=== PATIENT | female | born 1965 | race Caucasian/White ===

== ENCOUNTER 2024-02-29 06:48 | Day surgery (SDC) | payer MEDICARE, OTHER ==
[2024-02-29] MEDS ORDERED: Depo-Medrol 40 MG/ML IM ONE (06:49)
[2024-02-29] MEDS ORDERED: BUPIVACAINE 0.5% VIAL IJ ONE (06:49)
[2024-02-29] MEDS ORDERED: DIPRIVAN 200 MG/20 ML IV ONE (08:55)
[2024-02-29] MEDS ORDERED: Lactated Ringers 1,000 ML IV ONE (09:17)
--- NOTE | 2024-02-29 10:57 | XRAY ---
Indication: Right shoulder and subacromial bursa injection. Intraoperative fluoroscopy provided for 14 seconds. 2 digital spot images submitted for interpretation demonstrates needle tip projecting over right glenohumeral joint superiorly. Second needle tip subacromial. Small amount of contrast injected for needle tip placement. Correlate with intraoperative findings/report.
--- NOTE | 2024-02-29 11:37 | XRAY ---
14 seconds of fluoroscopy was used in surgery for a right intra-articular shoulder and subacromial bursa injection.
== END 2024-02-29 09:23 ==
LOC: SDC-PAIN 06:48
PROVIDERS: ATTEND Psychiatry & Neurology Pain Medicine
DX: M19.011 Primary osteoarthritis, right shoulder (principal); M75.51 Bursitis of right shoulder; E11.9 Type 2 diabetes mellitus without complications
CPT/HCPCS: 20610; 73030; 77002; 82947; 93005; J2704; Q9966

== ENCOUNTER 2025-04-17 07:24 | Day surgery (SDC) | payer MEDICARE, OTHER ==
[2025-04-17] MEDS ORDERED: BUPIVACAINE 0.5% VIAL IJ ONE (07:25)
[2025-04-17] MEDS ORDERED: propofoL IV ONE (09:13)
[2025-04-17] MEDS ORDERED: Lactated Ringers 1,000 ML IV ONE (10:34)
--- NOTE | 2025-04-17 11:55 | XRAY ---
Indication: Right C2-C4 MBB. Intraoperative fluoroscopy provided for 20 seconds. 2 digital spot image submitted for interpretation demonstrates posterior needle tips projecting over expected right C2-C4 nerve roots. Correlate with intraoperative findings/report.
--- NOTE | 2025-04-17 12:56 | XRAY ---
20 seconds of fluoroscopy was used in surgery for a right C2-C4 MBB.
== END 2025-04-17 09:50 | disposition home or self-care (01) ==
LOC: SDC-PAIN 07:24
PROVIDERS: ATTEND Psychiatry & Neurology Pain Medicine
DX: M47.812 Spondylosis without myelopathy or radiculopathy, cervical region (principal); E11.9 Type 2 diabetes mellitus without complications

== ENCOUNTER 2025-05-15 07:41 | Day surgery (SDC) | payer MEDICARE, OTHER ==
[2025-05-15] MEDS ORDERED: BUPIVACAINE 0.5% VIAL IJ ONE (07:42)
[2025-05-15] MEDS ORDERED: LIDOCAINE HCL 1% 50 MG/5 ML VL IJ ONE (07:42)
[2025-05-15] MEDS ORDERED: propofoL IV ONE (09:29)
--- NOTE | 2025-05-15 11:54 | XRAY ---
Indication: Right C2-C4 RFA. Intraoperative fluoroscopy provided for 16 seconds. 3 digital spot images submitted for interpretation demonstrates posterior needle tips projecting over expected right C2-C4 nerve roots. Correlate with intraoperative findings/report.
--- NOTE | 2025-05-15 12:32 | XRAY ---
16 seconds of fluoroscopy was used in surgery for a right C2-C4 RFA.
[2025-05-15] MEDS ORDERED: Lactated Ringers 1,000 ML IV ONE (14:01)
== END 2025-05-15 10:03 | disposition home or self-care (01) ==
LOC: SDC-PAIN 07:41
PROVIDERS: ATTEND Psychiatry & Neurology Pain Medicine
DX: M47.812 Spondylosis without myelopathy or radiculopathy, cervical region (principal); E11.9 Type 2 diabetes mellitus without complications